=== PATIENT | female | born 1985 | race Caucasian/White ===

== ENCOUNTER 2025-01-01 11:00 | Inpatient (IN) ==
[2025-01-01] MEDS ORDERED: OXYTOCIN 30 UNITS/NSS 30 UNITS/500 ML BAG IV PRN (12:06)
[2025-01-01] MEDS ORDERED: ACETAMINOPHEN 325 MG TAB PO PRN (12:06)
[2025-01-01] MEDS ORDERED: LIDOCAINE 1% LOCAL 20 ML VIAL INFIL PRN (12:06)
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
[2025-01-01] MEDS: CALCIUM CARBONATE 500 MG CHEWABLE TAB PO PRN (12:39)
[2025-01-01 12:41] LABS: Hematocrit (blood only) 36.9 % (37.0-47.0); Hemoglobin 12.7 g/dl (12.0-16.0); Mean Corpuscular Hemoglobin 30.4 pg (25.0-34.0); Mean Corpuscular Volume 88.3 fL (80.0-100.0); Platelet Count 118 K/uL (130-400); RDW Standard Deviation 43.2 fL (36.4-46.3); Red Blood Count 4.18 M/uL (4.20-5.40); White Blood Count 12.31 K/ul (4.8-10.8)
[2025-01-01] MEDS: LACTATED RINGER'S 1,000 ML IV PRN (12:56)
[2025-01-01] MEDS: OXYTOCIN 30 UNITS/NSS 30 UNITS/500 ML BAG IV PRN (13:09)
[2025-01-01] MEDS ORDERED: CALCIUM CARBONATE 500 MG CHEWABLE TAB PO PRN (13:13)
[2025-01-01] MEDS: CALCIUM CARBONATE 500 MG CHEWABLE TAB PO STA (13:43)
[2025-01-01] MEDS ORDERED: NALBUPHINE HCL INJ 10 MG/ML AMP IV PRN (19:24)
[2025-01-01] MEDS ORDERED: diphenhydrAMINE 50 MG/ML VIAL IV PRN (19:24)
[2025-01-01] MEDS ORDERED: ROPIVACAINE 0.5% PF 5 MG/ML 20 ML VIAL EPI PRN (19:24)
[2025-01-01] MEDS ORDERED: NALOXONE HCL 1 MG in SODIUM CHLORIDE 0.9% 1,000 ML IV PRN (19:24)
[2025-01-01] MEDS ORDERED: SODIUM CHLORIDE 0.9% PF INJ 10 ML VIAL EPI PRN (19:24)
[2025-01-01] MEDS ORDERED: BUPIVACAINE 0.25% PF 30 ML VIAL EPI PRN (19:24)
[2025-01-01] MEDS ORDERED: NALOXONE HCL 0.4 MG/1 ML VIAL/CARP IV PRN (19:24)
[2025-01-01] MEDS ORDERED: LIDOCAINE 2% MPF LOCAL 5 ML VIAL EPI PRN (19:24)
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
[2025-01-01] MEDS: fentANYL 2 MCG/ML BUPIVacaine 0.125%-NSS 100ML BAG EPI PRN (20:10)
[2025-01-01] MEDS: BUPIVACAINE 0.25% PF 30 ML VIAL EPI STA (20:12)
[2025-01-01] MEDS: LIDOCAINE 2%/EPINEPHRINE 1:200,000 20 ML PF EPI STA (20:12)
[2025-01-01] MEDS ORDERED: PHENYLEPHRINE 100MCG/ML 5ML SYR ONE (20:22)
[2025-01-01] MEDS: fentANYL 2 MCG/ML BUPIVacaine 0.125%-NSS 100ML BAG ONE (20:35)
[2025-01-01] MEDS: LIDOCAINE 2%/EPINEPHRINE 1:200,000 20 ML PF ONE (20:35)
[2025-01-01] MEDS: BUPIVACAINE 0.25% PF 30 ML VIAL ONE (20:35)
[2025-01-01] MEDS: SODIUM CHLORIDE 0.9% PF INJ 10 ML VIAL ONE (20:36)
[2025-01-01] MEDS: SODIUM CHLORIDE 0.9% PF INJ 10 ML VIAL EPI STA (20:36)
--- NOTE | 2025-01-01 23:12 | Labor Progress Brief Note ---
Date of Service January 01, 2025 Subjective Comfortable with epidural. FHT Cat 1 [place] Q 2 Will plan to wait for AROM d/t polyhydramnios. Assessment & Plan Admission and Anticipated Discharge Date Admission Date: January 01, 2025 Results & Data Vital Signs (Past 12 Hours) Vital Signs Temp Pulse Resp BP Pulse Ox 01/01/25 23:07 93 01/01/25 23:07 64 01/01/25 23:07 59 L 97/56 L 01/01/25 23:03 60 93/52 L 01/01/25 23:02 61 93 01/01/25 22:57 64 93 01/01/25 22:56 56 L 94/55 L 01/01/25 22:52 60 90/55 L 94 01/01/25 22:51 59 L 93 01/01/25 22:47 61 96 01/01/25 22:46 60 83/50 L 01/01/25 22:42 66 90/48 L 95 01/01/25 22:37 94 01/01/25 22:37 62 01/01/25 22:37 60 94/50 L 01/01/25 22:36 58 L 94 01/01/25 22:32 66 93 01/01/25 22:31 63 93/54 L 01/01/25 22:30 18 01/01/25 22:30 18 01/01/25 22:28 59 L 94 01/01/25 22:27 58 L 94 01/01/25 22:26 58 L 93/52 L 01/01/25 22:22 94 01/01/25 22:22 62 01/01/25 22:22 59 L 94 01/01/25 22:21 60 95/50 L 01/01/25 22:17 94 01/01/25 22:17 63 01/01/25 22:17 61 104/52 L 93 01/01/25 22:12 68 94 01/01/25 22:10 62 93 01/01/25 22:07 94 01/01/25 22:07 59 L 01/01/25 22:07 56 L 85/46 L 01/01/25 22:04 61 94 01/01/25 22:02 94 01/01/25 22:02 59 L 01/01/25 22:02 62 86/49 L 01/01/25 22:00 16 01/01/25 22:00 16 01/01/25 21:58 70 90/51 L 94 01/01/25 21:57 63 95 01/01/25 21:52 61 94 01/01/25 21:51 65 95/53 L 01/01/25 21:50 71 93 01/01/25 21:47 58 L 94/53 L 93 01/01/25 21:42 63 94 01/01/25 21:41 61 99/53 L 01/01/25 21:37 59 L 94 01/01/25 21:36 67 94 01/01/25 21:34 61 96/47 L 01/01/25 21:32 62 95 01/01/25 21:31 64 174/102 H 01/01/25 21:30 66 18 94 01/01/25 21:27 70 95 01/01/25 21:22 71 96 01/01/25 21:17 64 95 01/01/25 21:15 66 105/55 L 94 01/01/25 21:12 68 97/54 L 97 01/01/25 21:09 71 99/54 L 01/01/25 21:08 64 85/51 L 01/01/25 21:07 65 96 01/01/25 21:06 59 L 83/48 L 01/01/25 21:03 68 107/55 L 01/01/25 21:02 72 95 01/01/25 21:00 82 16 105/54 L 94 01/01/25 20:57 97 01/01/25 20:57 70 01/01/25 20:57 67 91/50 L 01/01/25 20:55 74 96/54 L 01/01/25 20:52 82 96 01/01/25 20:51 63 98/55 L 01/01/25 20:49 67 96/50 L 01/01/25 20:47 96 01/01/25 20:47 69 01/01/25 20:47 65 100/54 L 01/01/25 20:45 64 98/51 L 01/01/25 20:43 60 91/55 L 01/01/25 20:42 70 97 01/01/25 20:41 63 90/55 L 01/01/25 20:39 103/60 01/01/25 20:37 62 94/52 L 97 01/01/25 20:35 61 99/58 L 01/01/25 20:32 74 97 01/01/25 20:30 16 01/01/25 20:30 16 01/01/25 20:28 56 L 143/63 H 01/01/25 20:27 59 L 98 01/01/25 20:22 69 100 01/01/25 20:21 72 81/42 L 01/01/25 20:20 65 81/43 L 01/01/25 20:17 88 90/51 L 100 01/01/25 20:15 59 L 01/01/25 20:15 93/50 L 01/01/25 20:15 71 90/55 L 01/01/25 20:13 71 100/59 L 01/01/25 20:12 74 99 01/01/25 20:11 92 01/01/25 20:11 75 01/01/25 20:11 83 96/54 L 01/01/25 20:09 60 96/53 L 01/01/25 20:07 57 L 99/56 L 99 01/01/25 20:06 51 L 76/40 L 01/01/25 20:04 62 69/38 L 01/01/25 20:02 97 01/01/25 20:02 69 01/01/25 20:02 81/46 L 01/01/25 20:02 68 89/53 L 01/01/25 20:01 77 92/52 L 01/01/25 19:59 82 112/63 01/01/25 19:57 99 H 107/66 100 01/01/25 19:55 76 114/72 01/01/25 19:52 70 99 01/01/25 19:47 65 100 01/01/25 19:42 67 100 01/01/25 19:12 68 118/64 01/01/25 19:00 18 01/01/25 19:00 36.9 C 18 01/01/25 18:15 73 120/74 01/01/25 17:15 68 130/82 01/01/25 16:12 69 121/72 01/01/25 15:00 36.8 C 72 16 128/75 01/01/25 11:32 85 116/75 01/01/25 11:26 18 01/01/25 11:26 36.9 C 18 Coding Level of Care Code None
[2025-01-02] MEDS: TRANEXAMIC ACID / 0.7% NACL 1,000 MG/100 ML BAG IV STA (04:01)
[2025-01-02] MEDS: METHYLERGONOVINE MALEATE 0.2 MG/ML AMP IM STA (04:03)
--- NOTE | 2025-01-02 04:10 | Delivery Summary ---
Vaginal Delivery Summary Date of Service January 02, 2025 Vaginal Delivery Summary and 1st Degree LAC Vaginal Delivery Summary: Pre-delivery diagnoses: 39yo @ 40 1/7, polyhydramnios, h/o HSV (on valtrex, no active lesions), AMA Post-delivery diagnoses: same Procedure: spontaneous vaginal delivery Surgeon: Laura Loco DO Complications: none Findings: Viable female . Apgars: 7/9 . Weight pending, please see nursery records Estimated QBL - not yet calculated, please see nursing notes. EBL by my estimate 150 Description of delivery: The patient progressed to complete with epidural anesthesia. She then began to push. She spontaneously vaginally delivered a viable from the cephalic presentation. The head delivered in POOJA position. The anterior shoulder delivered, followed by the posterior shoulder, followed by the body. No nuchal. The baby was placed on mother's abdomen and the cord was doubly clamped and cut. A segment was retained for cord gases. Cord blood was obtained. The placenta was delivered spontaneously intact with a 3-vessel cord. The uterus and vagina were swept of clots and debris. IV pitocin was given. Lower uterine segment somewhat atonic, given this and the h/o polyhydramnios, 1g TXA was given as well as methergine. The uterus became firm. The cervix, vagina, and perineum were inspected and 1st degree laceration noted and repaired with 3-0 Vicryl. Excellent hemostasis was observed. The mother and baby are recovering in stable and good condition in the room. Sponge, needle and instrument counts were correct x 2. Laura Loco DO [facility] Vaginal Delivery Charge Vaginal Delivery Codes: 05972 global code for the antepartum, delivery, and post- Delivery Type Details: and 1st Degree LAC
[2025-01-02] MEDS ORDERED: IBUPROFEN 600 MG TAB PO PRN (04:22)
[2025-01-02] MEDS ORDERED: DIPHTHER/TETAN/PERTUS Vaccine (Tdap, Adol/Adult) 0.5mL IM ONE (04:22)
[2025-01-02] MEDS ORDERED: ACETAMINOPHEN 325 MG TAB PO PRN (04:22)
[2025-01-02] MEDS ORDERED: HYDROCORTISONE ACETATE 25 MG SUPP PR PRN (04:22)
[2025-01-02] MEDS ORDERED: OXYTOCIN 30 UNITS/NSS 30 UNITS/500 ML BAG IV PRN (04:22)
[2025-01-02] MEDS: BENZOCAINE 20% SPRY 85 APPLN/85 GM CAN EXT PRN (06:35)
[2025-01-02] MEDS: ONDANSETRON INJ 2 MG/ML 2 ML VIAL IV PRN (06:35)
--- NOTE | 2025-01-02 06:44 | Anesthesia Procedure Note ---
Date of Service January 02, 2025 Anesthesia Post Epidural Note Vital Signs Vital Signs: Temp Pulse Resp BP Pulse Ox 36.8 C 80 15 131/62 99 01/01/25 23:00 01/02/25 06:13 01/01/25 23:00 01/02/25 06:13 01/02/25 03:52 Notes Mental Status: alert / awake / arousable and participated in evaluation Patient Amnestic to Procedure: No Nausea / Vomiting: adequately controlled Pain: adequately controlled Airway Patency, RR, SpO2: stable & adequate BP & HR: stable & adequate Hydration State: stable & adequate Neuraxial Anesthesia: was administered and sensory block resolved Anesthetic Complications: no major complications apparent and Pt Satisfied with anesthetic care Epidural: Removed without complications and With tip intact
[2025-01-02 07:47] LABS: Base Excess Cord Arterial Bld -10.0 mEq/L (-9-1.8); CO2 Cord Arterial Blood 74 mmHg (39.1-73.5); HCO3 Cord Arterial Blood 21 mmol/L (19.7-28.5); Oxygen Sat Cord Arterial Blood < 60.0 % (<60); PO2 Cord Arterial Blood 21 mmHg (4.1-31.7); pH Cord Arterial Blood 7.07 (7.1-7.38)
[2025-01-02 07:48] LABS: Base Excess Cord Venous Blood -5.9 mEq/L (-7.7-1.9); Cord Venous Blood PO2 33 mmHg (14.1-43.3); O2 Saturation Cord Venous Bld 67.9 % (<68)
[2025-01-02] MEDS: PRENATAL VITAMIN 1 TAB PO SCH (07:54)
[2025-01-02] MEDS: DOCUSATE SODIUM 100 MG CAP PO SCH (07:54)
--- NOTE | 2025-01-03 07:24 | Obstetrical Progress Note ---
Date of Service <Camelia Batres DO - Last Filed: 01/03/25 09:04> January 03, 2025 Assessment & Plan <Camelia Batres DO - Last Filed: 01/03/25 09:04> (1) care following vaginal delivery: Plan 39 yo post- day 1 s/p Feels well today. Vital signs stable Continue post- care Encourage ambulation and Pain controlled with ibuprofen Hgb stable Discharge home today, follow up with Dr. Loco in 6 weeks. <Beckie Fry MD, FACOG - Last Filed: 01/05/25 07:41> (1) care following vaginal delivery: Subjective <Camelia Batres DO - Last Filed: 01/03/25 09:04> 39 yo post- day 1 s/p Ambulation: ambulating normally Voiding: no voiding problems Passing Gas:: Yes Passing Stool:: No Diet Tolerance:: regular diet Lochia:: Small Feeding Type:: breast feeding Current Pain Level: 0/10 Resting comfortably this AM in NAD. Denies MUÑOZ, CP, SOB, N/V/D, LE pain/swelling. Review of Systems All systems reviewed & are unremarkable except as noted in HPI & below Physical Exam <Camelia Batres DO - Last Filed: 01/03/25 09:04> General: patient resting comfortably, NAD, non-toxic in appearance, AA&O x 4, answers questions appropriately. Skin: warm, dry, intact HEENT: NC/AT, anicteric sclera, conjunctiva without injection, moist mucus membranes. Heart: +S1/S2, regular, no m/r/g Lungs: equal air entry bilaterally, no rales/rhonchi/wheezes Abd: +BS, soft, NT/ND, uterine fundus firm 1 FB below umbilicus Ext: warm, no clubbing/cyanosis or edema, Ajck's neg. Neuro: nonfocal, patient AA&O x 4, speech intact, no facial droop, moving all extremities on command. Results & Data <Camelia Batres DO - Last Filed: 01/03/25 09:04> Vital Signs (Past 12 Hours) Vital Signs Temp Pulse Pulse Resp BP Pulse Ox O2 Del Method 01/03/25 02:15 36.6 C 49 L 18 111/66 Room Air 01/02/25 23:50 36.5 C 58 L 18 115/73 96 Room Air 01/02/25 19:55 Room Air 01/02/25 19:55 36.5 C 63 18 104/66 95 Room Air Laboratory Results OB Labs: Blood Type O Positive 07/03/24 Antibody Screen NEGATIVE 07/03/24 Hgb 12.8 g/dl (12.0-16.0) 10/16/24 Hct 38.4 % (37.0-47.0) 10/16/24 MCV 90.7 fL (80.0-100.0) 07/03/24 Plt Count 200 K/uL (130-400) 07/03/24 Rubella IgG Antibody Immune (Immune) 07/03/24 Treponema pallidum Ab Negative (Negative) 10/16/24 Hep Bs Antigen Negative (Negative) 07/03/24 Hepatitis C Antibody Negative (Negative) 07/03/24 HIV 1&2 Ab/P24 Ag 4thGn Negative (Negative) 07/03/24 Glucose 1 Hr 50 gm 106 mg/dl (70-130) 10/16/24 OB Optional Labs: Chlamydia trachomatis RNA Not Detected (NotDetected) 07/03/24 Neisseria gonorrhoeae RNA Not Detected (NotDetected) 07/03/24 Supervising Physician <Beckie Fry MD, FACOG - Last Filed: 01/05/25 07:41> Co-Signing Physician Notes Resident Physician Supervision Note: I was present with [Name of resident] during the history and exam. I discussed the case with the resident and agree with the findings and plan as documented in the note. Any exceptions or clarifications are listed here: [None] Documented By: Beckie Fry MD, FACOG Resident Activity Tracking <Camelia Batres DO - Last Filed: 01/03/25 09:04> Resident Involvement: Resident Care Provided Care Provided: OB Delivery
[2025-01-03 07:47] VITALS: O2SAT 94
[2025-01-03 08:17] LABS: Hematocrit (blood only) 34.8 % (37.0-47.0); Hemoglobin 11.6 g/dl (12.0-16.0)
[2025-01-03 08:38] VITALS: BP 106/71; RESP 17; TEMP 97.7
[2025-01-03 11:22] VITALS: PULSE 49
== END 2025-01-03 14:04 | disposition home or self-care (01) | DRG 806 ==
LOC: 4S1 11:00 → 4E2 01-02 07:16